=== PATIENT | female | born 1965 | race Caucasian/White ===

== ENCOUNTER 2017-01-25 03:12 | Emergency (ER) | payer MEDICAID, OTHER ==
[2017-01-25 03:32] VITALS: BP 185/113; RESP 20; O2SAT 92
--- NOTE | 2017-01-25 04:17 | C.PDOC ---
History Of Present Illness 51 year old female presents to the ER with a complaint of dental pain for the past month. Patient is due to see her dentist soon and has finished a treatment of amoxicillin. Denies fever or other complaints Time Seen by Provider: 01/25/17 03:45 Chief Complaint (Nursing): Dental Pain History Per: Patient History/Exam Limitations: no limitations Onset/Duration Of Symptoms: Days Current Symptoms Are (Timing): Still Present Quality: Positive for: "Pain" Recent travel outside of the [place]: No Past Medical History Reviewed: Historical Data, Nursing Documentation, Vital Signs Vital Signs: Last Vital Signs Temp 97.8 F 01/25/17 03:28 Pulse 70 01/25/17 03:28 Resp 20 01/25/17 03:28 BP 185/113 H 01/25/17 03:28 Pulse Ox 92 L 01/25/17 04:17 - Medical History PMH: COPD, HTN, Peripheral Edema (B/L PEDAL) Surgical History: No Surg Hx Family History: States: Unknown Family Hx - Social History Hx Alcohol Use: No Hx Substance Use: No Review Of Systems Constitutional: Negative for: Fever, Chills ENT: Positive for: Mouth Pain. Negative for: Mouth Swelling Physical Exam - Physical Exam Appears: Non-toxic, No Acute Distress Skin: Normal Color, Warm, Dry Head: Atraumatic, Normacephalic Nose: Normal Oral Mucosa: Moist, No Other (Buccal swelling) Tongue: Normal Appearing Lips: Normal Appearing Teeth: Caries (left sided) Gingiva: Normal Appearing ED Course And Treatment O2 Sat by Pulse Oximetry: 92 (room air) Pulse Ox Interpretation: Normal Medical Decision Making Medical Decision Making: Toradol administered. Patient started on amoxicillin. Disposition - Disposition Referrals: [facility] [Outside] [facility] [Outside] Disposition Time: 04:16 Condition: STABLE Prescriptions: Amoxicillin [Amoxil 500 mg Cap] 500 mg PO TID #21 cap Naproxen 500 mg PO BID PRN #14 tab PRN Reason: Pain, Mild (1-3) Instructions: Dental Caries (ED) Forms: [facility] (Nauruan) - Clinical Impression Clinical Impression: Dental caries, Toothache - Scribe Statement The provider has reviewed the documentation as recorded by the Scribmary jane Rao All medical record entries made by the Scribe were at my direction and personally dictated by me. I have reviewed the chart and agree that the record accurately reflects my personal performance of the history, physical exam, medical decision making, and the department course for this patient. I have also personally directed, reviewed, and agree with the discharge instructions and disposition.
[2017-01-25 05:42] VITALS: PULSE 82; TEMP 98
== END 2017-01-25 05:38 | disposition home or self-care (01) ==
LOC: C.ER 03:12
DX: K02.9 Dental caries, unspecified (principal)
CPT/HCPCS: 96372; 99282; J1885

== ENCOUNTER 2017-08-09 16:20 | Emergency (ER) | payer OTHER ==
[2017-08-09] MEDS ORDERED: Albuterol 0.083% Inhal Sol (2.5 mg/3 mL) UD IH STA (17:39)
[2017-08-09] MEDS ORDERED: Albuterol 0.083% Inhal Sol (2.5 mg/3 mL) UD ONE (17:44)
--- NOTE | 2017-08-09 17:55 | C.PDOC ---
History Of Present Illness 51-year-old female with PMHx of anemia (currently taking iron supplements), presents to the emergency department with complaints dizziness described as room spinning around, associated with nausea and abdominal cramping/spasms since approx 10:00 am this morning. Patient denies chest pain, palpitations, vomiting, fever. Time Seen by Provider: 08/09/17 16:52 Chief Complaint (Nursing): Palpitations History Per: Patient History/Exam Limitations: no limitations Current Symptoms Are (Timing): Still Present Current Respiratory Medications: See Home Med List Severity: Mild Past Medical History Reviewed: Historical Data, Nursing Documentation, Vital Signs Vital Signs: Last Vital Signs Temp 98 F 08/09/17 19:15 Pulse 78 08/09/17 19:15 Resp 18 08/09/17 19:15 BP 145/74 08/09/17 19:15 Pulse Ox 98 08/09/17 19:15 - Medical History PMH: COPD, HTN, Peripheral Edema (B/L PEDAL) Family History: States: No Known Family Hx - Social History Hx Alcohol Use: No Hx Substance Use: No Review Of Systems Constitutional: Negative for: Fever, Chills Cardiovascular: Negative for: Chest Pain, Palpitations Respiratory: Positive for: Shortness of Breath (mild) Gastrointestinal: Positive for: Nausea, Abdominal Pain (cramping/spasms) Musculoskeletal: Negative for: Back Pain Skin: Negative for: Rash Neurological: Positive for: Dizziness. Negative for: Weakness, Numbness, Incoordination, Change in Speech, Altered Mental Status, Headache Physical Exam - Physical Exam Appears: Well, Non-toxic, No Acute Distress, Other (obese, speaking full sentences) Skin: Warm, Dry, Pale (mild) Head: Atraumatic, Normacephalic Eye(s): bilateral: Normal Inspection Nose: Normal Oral Mucosa: Moist Cardiovascular: Rhythm Regular Respiratory: No Accessory Muscle Use, No Rales, No Rhonchi, Wheezing (mild, expiratory) Gastrointestinal/Abdominal: Normal Exam, Bowel Sounds, Soft, No Tenderness Extremity: Normal ROM, No Deformity, No Swelling Neurological/Psych: Oriented x3, Normal Speech, Normal Cognition, Normal Cranial Nerves, No Cerebellar Signs, Normal Motor, Normal Sensation ED Course And Treatment - Laboratory Results Result Diagrams: 08/09/17 18:13 08/09/17 18:13 ECG: Interpreted By Me, Viewed By Me (NSR 64 bpm, normal axis, small Q waves II , III, aVF, no acute ST/T wave changes) ECG Rhythm: Sinus Rhythm ECG Interpretation: No Acute Changes Rate From EC O2 Sat by Pulse Oximetry: 95 (RA) Pulse Ox Interpretation: Normal - Radiology CXR: Interpreted by Me, Viewed By Me CXR Interpretation: Yes: No Acute Disease. No: Infiltrates Progress Note: Bloodwork, EKG, Chest XR and UA ordered and reviewed. Patient given duoneb treatment, PO Meclizine. Reevaluation Time: 19:10 Reassessment Condition: Improved (Patient reassessed, states she feels better, able to ambulate normally in ED. No evidence of anemia on blood work. Patient' s symptoms consistent with peripheral vertigo. She was given Rx for meclizine, and instructed to follow up with ENT within 1 week. She understands she should return to ED if symptoms worsen.) Disposition Counseled Patient/Family Regarding: Diagnosis, Need For Followup, Rx Given - Disposition Referrals: Sincere Jasso DO [Staff Provider] - Mahad Morgan MD [Staff Provider] - Disposition: HOME/ ROUTINE Disposition Time: 19:10 Condition: STABLE Additional Instructions: FOLLOW UP WITH YOUR DOCTOR IN 1-2 DAYS IF SYMPTOMS PERSIST, FOLLOW UP WITH ENT SPECIALIST WITHIN 1 WEEK IF SYMPTOMS WORSEN, RETURN TO ER Prescriptions: Meclizine [Meclizine*] 25 mg PO Q6 #15 tab Instructions: Vertigo (a Type of Dizziness) (DC) Forms: [facility] (Mauritanian) Print Language: TOGOLESE - POA Present On Arrival: None - Clinical Impression Clinical Impression: Peripheral vertigo, Nausea - Scribe Statement The provider has reviewed the documentation as recorded by the Scribe (Cyril Cao) All medical record entries made by the Scribe were at my direction and personally dictated by me. I have reviewed the chart and agree that the record accurately reflects my personal performance of the history, physical exam, medical decision making, and the department course for this patient. I have also personally directed, reviewed, and agree with the discharge instructions and disposition.
[2017-08-09] MEDS ORDERED: Sodium Chloride 0.9% 500 ML IV ONE (18:23)
[2017-08-09 18:26] LABS: BASO # 0.1 K/uL (0.0-0.2)
[2017-08-09 18:30] LABS: INR 1.2; PROTHROMBIN TIME 12.8 SECONDS (9.7-12.2)
[2017-08-09 18:32] LABS: BASO % 1.5 % (0.0-2.0); EOS # 0.3 K/uL (0.0-0.7); EOS % 3.7 % (0.0-4.0); LYMPH % 13.5 % (20.0-40.0); MEAN CELL VOLUME 71.6 fL (81.0-99.0); MEAN CORPUSCULAR HEMOGLOBIN 21.8 pg (27.0-31.0); MEAN CORPUSCULAR HGB CONC 30.4 g/dL (33.0-37.0); MEAN PLATELET VOLUME 9.5 fL (7.2-11.7); MONO # 0.5 K/uL (0.0-0.8); NEUT # 5.3 K/uL (1.8-7.0); NEUT % 74.3 % (50.0-75.0); NRBC % 0.2 % (0.0-2.0); RBC 5.04 Mil/uL (3.80-5.20); RED CELL DISTRIBUTION WIDTH 25.8 % (11.5-14.5); WHITE BLOOD COUNT 7.1 K/uL (4.8-10.8)
[2017-08-09 18:33] LABS: ALB/GLOB RATIO 1.2 (1.0-2.1); ALBUMIN 3.9 g/dL (3.5-5.0); ALT/SGPT 19 U/L (9-52); AST/SGOT 18 U/L (14-36); BLOOD UREA NITROGEN 15 mg/dL (7-17); CALCIUM 9.1 mg/dl (8.6-10.4); GFR AFRICAN-AMERICAN > 60; GFR NON-AFRICAN AMERICAN > 60
[2017-08-09 18:36] LABS: HCG,QUALITATIVE URINE NEGATIVE (NEGATIVE)
[2017-08-09 18:44] LABS: SQUAMOUS EPITHIAL 5 /hpf (0-5)
[2017-08-09 18:45] LABS: B-TYPE NATRIURETIC PEPTIDE 186 pg/mL (0-900); CK-MB 0.55 ng/mL (0.0-3.38)
[2017-08-09 18:50] LABS: URINE COLOR YELLOW (YELLOW)
[2017-08-09 18:51] LABS: PH,URINE 5.5 (5.0-8.0); URINE BILIRUBIN NEGATIVE (NEGATIVE); URINE BLOOD NEGATIVE (NEGATIVE); URINE CLARITY Clear (Clear); URINE GLUCOSE (UA) NEGATIVE (Normal); URINE LEUKOCYTE ESTERASE NEGATIVE Leu/uL (Negative); URINE PROTEIN NEGATIVE (NEGATIVE); URINE UROBILINOGEN 0.2 mg/dL (0.2-1.0)
[2017-08-09] MEDS ORDERED: Sodium Chloride 0.9% 250 ML IV ONE (19:14)
[2017-08-09 19:16] VITALS: BP 145/74; PULSE 78; RESP 18; TEMP 98
--- NOTE | 2017-08-10 08:04 | RAD ---
Chest x-ray single frontal view History: Shortness of breath. Comparison: None available. Findings Mild venous congestion. Right hilar prominence. Patchy increased markings in the right infrahilar region. Tortuous ectatic aorta. Degenerative changes in the spine. Impression: Mild venous congestion. Right hilar prominence. Patchy increased markings in the right infrahilar region. Tortuous ectatic aorta.
[2017-08-10 17:06] VITALS: O2SAT 95
== END 2017-08-09 19:16 | disposition home or self-care (01) ==
LOC: C.ER 16:20
DX: H81.399 Other peripheral vertigo, unspecified ear (principal); R11.0 Nausea; I10 Essential (primary) hypertension; R60.0 Localized edema; F17.210 Nicotine dependence, cigarettes, uncomplicated
CPT/HCPCS: 71045; 80053; 81001; 82550; 82553; 83880; 84484; 84703; 85025; 85610; 85730; 86850; 86900; 99285; J7040